=== PATIENT | male | born 1945 | race Caucasian/White ===

== ENCOUNTER 2021-09-24 21:12 | Emergency (ER) | payer MEDICARE ==
[2021-09-24] MEDS ORDERED: Ondansetron PF 4 MG/2 ML Vial ONE (21:32)
[2021-09-24] MEDS ORDERED: Acetaminophen 500 MG TAB ONE (21:32)
[2021-09-24 21:56] LABS: #Basophils 0.2 thou/uL (0.0-0.2); #Monocytes 1.6 thou/uL (0.11-0.59); #Neutrophils 5.6 thou/uL (1.40-6.50); %Basophils 2.1 % (0.0-1.0); %Eosinophils 0.2 % (0.0-10.0); %Lymphocytes 34.8 % (21.0-51.0); %Monocytes 14.2 % (0.0-10.0); %Neutrophils 48.7 % (42.0-75.0); Hemoglobin 12.2 g/dL (12.0-16.0); Mean Corpuscular HGB CONC 31.9 g/dL (32.0-36.0); Mean Corpuscular Hemoglobin 26.6 pg (27.0-31.0); Mean Corpuscular Volume 83.5 fL (78.0-98.0); Mean Platelet Volume 6.5 fL (7.4-10.4); Platelet Count 249 thou/uL (130-400); RBC Distribution Width 19.1 % (11.5-14.5); Red Blood Cell (RBC) Count 4.59 mill/uL (4.20-5.40); White Blood Cell (WBC) Count 11.5 thou/uL (4.8-10.8)
[2021-09-24 22:04] LABS: ALT (SGPT) 31 U/L (8-55); AST (SGOT) 37 U/L (5-34); Albumin 3.1 g/dL (3.4-4.8); Alkaline Phosphatase 99 U/L (40-110); Anion Gap 18 mmol/L (10-20); BUN (Urea Nitrogen) 16 mg/dL (9.8-20.1); Bilirubin, Total 0.7 mg/dL (0.2-1.2); Calc. Creatinine Clearance 0 mL/min (70-130); Calcium 8.4 mg/dL (7.8-10.44); Carbon Dioxide 27 mmol/L (23-31); Chloride 98 mmol/L (98-107); Globulin 2.7 g/dL (2.4-3.5); Glucose 140 mg/dL (83-110); Potassium 3.6 mmol/L (3.5-5.1); Protein, Total 5.8 g/dL (5.8-8.1); Sodium 139 mmol/L (136-145)
[2021-09-24 22:19] LABS: Anisocytosis SLIGHT = 6-15 cells (100X) (0-5/hpf); MDiff Complete? YES; Macrocytosis SLIGHT = 6-15 cells (100X) (0-5/hpf); Polychromasia SLIGHT = 2-3 cells (100X) (0-2/hpf)
[2021-09-24 22:47] LABS: SARS-CoV-2 NAA Rapid Test DETECTED (NotDetected)
[2021-09-24] MEDS ORDERED: Aspirin 325 MG TAB ONE ×2 (23:04→23:22)
[2021-09-24] MEDS ORDERED: Cefepime 2 GM VIAL ONE (23:04)
[2021-09-24] MEDS ORDERED: Sodium Chloride 0.9% 100 ML ONE ×2 (23:05)
[2021-09-24] MEDS ORDERED: Dexamethasone 10 MG/ML VIAL ONE (23:22)
[2021-09-25 00:55] LABS: Lactic Acid 0.9 mmol/L (0.5-2.2)
[2021-09-25 01:06] LABS: Troponin I 0.096 ng/mL (< 0.028)
[2021-09-25 04:50] LABS: CKMB 2.4 ng/mL (0-6.6)
[2021-09-25 08:37] LABS: #Lymphocytes 1.4 thou/uL (1.20-3.40); #Monocytes 0.1 thou/uL (0.11-0.59); #Neutrophils 3.6 thou/uL (1.40-6.50); %Basophils 0.3 % (0.0-1.0); %Lymphocytes 27.7 % (21.0-51.0); %Monocytes 2.4 % (0.0-10.0); %Neutrophils 69.6 % (42.0-75.0); Hemoglobin 10.6 g/dL (12.0-16.0); Mean Corpuscular HGB CONC 31.7 g/dL (32.0-36.0); Mean Corpuscular Hemoglobin 26.4 pg (27.0-31.0); Mean Corpuscular Volume 83.3 fL (78.0-98.0); Mean Platelet Volume 5.7 fL (7.4-10.4); Platelet Count 193 thou/uL (130-400); RBC Distribution Width 18.8 % (11.5-14.5); Red Blood Cell (RBC) Count 4.03 mill/uL (4.20-5.40); White Blood Cell (WBC) Count 5.1 thou/uL (4.8-10.8)
[2021-09-25 08:57] LABS: ALT (SGPT) 27 U/L (8-55); AST (SGOT) 31 U/L (5-34); Albumin 2.6 g/dL (3.4-4.8); Alkaline Phosphatase 78 U/L (40-110); Anion Gap 14 mmol/L (10-20); BUN (Urea Nitrogen) 18 mg/dL (9.8-20.1); Bilirubin, Total 0.6 mg/dL (0.2-1.2); Calc. Creatinine Clearance 0 mL/min (70-130); Calcium 7.8 mg/dL (7.8-10.44); Carbon Dioxide 27 mmol/L (23-31); Chloride 103 mmol/L (98-107); Glucose 174 mg/dL (83-110); Potassium 4.5 mmol/L (3.5-5.1); Sodium 139 mmol/L (136-145)
[2021-09-25 09:22] LABS: Anisocytosis MODERATE=16-30 cells (100X) (0-5/hpf); MDiff Complete? YES; Platelet Morphology Comment Appears Adequate
[2021-09-25 09:48] LABS: Globulin 3.3 g/dL (2.4-3.5); Protein, Total 5.9 g/dL (5.8-8.1)
== END 2021-09-25 08:57 | disposition short-term general hospital (02) ==
LOC: EDSEX → BURERS 21:12
DX: U07.1 COVID-19 (principal); A41.9 Sepsis, unspecified organism; E86.0 Dehydration; N18.30 Chronic kidney disease, stage 3 unspecified; Z79.52 Long term (current) use of systemic steroids; Z79.899 Other long term (current) drug therapy
CPT/HCPCS: 0240U; 71045; 80053; 82553; 83605; 83880; 84484 ×2; 85025; 87040; 93005; 94760; 36415; 96365; 96367; 96375; J0692; J1100; J2405; J3370; J3490